=== PATIENT | female | born 1985 | race African-American/Black ===

== ENCOUNTER 2017-09-11 15:01 | Emergency (ER) | payer MEDICAID ==
[~2017-09-11] VITALS: Ht 157.5 cm; Wt 63.5 kg
[2017-09-11] VITALS (8 sets, daily range): BP systolic 110–128; BP diastolic 61–75
[~2017-09-11 15:01] MED LIST: DiphenhydrAMINE 50mg/ml Inj IM ONE; Haloperidol 5mg/ml Inj IM ONE; LORazepam Inj 2mg/ml 1ml IM ONE
--- NOTE | 2017-09-11 15:14 | Emergency Room Report ---
History of Present Illness General Source: Patient - Police Officers and EMS Present Illness HPI 31-year-old female brought in by police and EMS Because she was agitated and threatening people verbally inside the [facility] building and was topless in that building She is not answering questions but rather speaking nonsensically With pressured speech and refusing to get out of the chair, requiring us to coax her repeatedly Police reported that they brought her in for us to take care of since she is agitated and was naked and seemed like a psychiatric case They will not be booking her so requested we address her psychiatric needs as she is disorganized and unable to function appropriately in this agitated state Allergies: Coded Allergies: UNABLE TO ASSESS (Unverified , 09/11/17) Patient History Limited by: medical condition Past Medical History: see triage record Reviewed Nursing Documentation: PMH: Agreed; PSxH: Agreed Review of Systems All Other Systems: limited - uncooperative Physical Exam Sp02 EP Interpretation: reviewed, normal General Appearance: no apparent distress, alert, non-toxic Head: normocephalic Eyes: bilateral eye normal inspection, bilateral eye PERRL, bilateral eye EOMI ENT: normal ENT inspection, hearing grossly normal, normal pharynx, no angioedema, normal voice, moist mucus membranes Neck: normal inspection, full range of motion, supple, supple/symm/no masses Respiratory: chest non-tender, lungs clear, normal breath sounds, chest symmetrical, palpation of chest normal Cardiovascular #1: normal peripheral pulses, regular rate, rhythm Cardiovascular #2: 2+ radial (R), 2+ radial (L) Gastrointestinal: normal inspection, non tender, soft, no mass, no guarding, no rebound Rectal: deferred Genitourinary: normal inspection, no CVA tenderness Musculoskeletal: back normal, gait/station normal, normal range of motion, non- tender, no calf tenderness Neurologic: alert, responsive, 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 Laboratory tests have been reviewed and addressed accordingly. The patient is deemed to present a danger to themselves and/or others. This is based on the exam, history ( provided by patient, EMS/[employer] and/or family) and observed or reported behavior. Attempts for non-invasive measures have been considered and/or attempted, however, have been futile. It is in the best interest of the nursing staff, the patient, and others involved in this patient's care that behavioral restraints be applied. Patient evaluation reveals the following: she is acutely agitated and speaking nonsensical requiring chemical and physical restraint As I think she is acutely manic and exhibiting agitated delirium Diagnostic Impression: Primary Impression: Agitation requiring sedation protocol Additional Impression: Licha Rhythm Strip Diag. Results Rhythm Strip Time: 15:12 EP Interpretation: yes Rate: 102 Rhythm: NSR, no PVC's, no ectopy SHAUN LAMAR M.D September 11, 2017 15:14
[2017-09-11 17:12] LABS: BASOPHILS % (AUTO) 1.5 % (0.0-2.0); EOSINOPHILS % (AUTO) 0.3 % (0.0-3.0); HEMATOCRIT 41.5 % (37.0-47.0); LYMPHOCYTES % (AUTO) 22.8 % (20.0-45.0); MEAN CORPUSCULAR VOLUME 85 FL (80-99); NEUTROPHILS % (AUTO) 64.4 % (45.0-75.0); PLATELET COUNT 262 K/UL (150-450); RED BLOOD COUNT 4.85 M/UL (4.20-5.40); RED CELL DISTRIBUTION WIDTH 11.6 % (11.6-14.8); WHITE BLOOD COUNT 6.6 K/UL (4.8-10.8)
[2017-09-11 17:23] LABS: ANION GAP 9 mmol/L (5-15); BLOOD UREA NITROGEN 13 mg/dL (7-18); CALCIUM 9.4 MG/DL (8.5-10.1); CARBON DIOXIDE 25 MMOL/L (21-32); CHLORIDE 108 MMOL/L (98-107); CREATININE 0.9 MG/DL (0.55-1.30); POTASSIUM 3.7 MMOL/L (3.5-5.1); SODIUM 142 MMOL/L (136-145)
[2017-09-11 17:27] LABS: ALANINE AMINOTRANSFERASE 29 U/L (12-78); ALBUMIN 4.2 G/DL (3.4-5.0); ALKALINE PHOSPHATASE 66 U/L (46-116); ASPARTATE AMINO TRANSFERASE 36 U/L (15-37); BILIRUBIN,TOTAL 0.8 MG/DL (0.2-1.0)
[2017-09-12] VITALS: BP 104/57
[2017-09-12 01:33] LABS: BILIRUBIN, URINE NEGATIVE (NEGATIVE); GLUCOSE, URINE (UA) NEGATIVE (NEGATIVE); KETONES,URINE 4+ (NEGATIVE); LEUKOCYTE ESTERASE ,URINE NEGATIVE (NEGATIVE); NITRITE,URINE NEGATIVE (NEGATIVE); PH,URINE 5 (4.5-8.0); PROTEIN,URINE 2+ (NEGATIVE); UROBILINOGEN,URINE NORMAL MG/DL (0.0-1.0)
[2017-09-12 01:40] LABS: APPEARANCE,URINE CLOUDY; COLOR,URINE YELLOW
[2017-09-12 04:00] VITALS: BP 122/69
[2017-09-12 07:57] VITALS: BP 116/57
[2017-09-12] MEDS ORDERED: Ziprasidone 20mg cap ORAL ONE (10:45)
[2017-09-12 12:13] VITALS: BP 123/62
[2017-09-12 16:45] VITALS: BP 123/62
== END 2017-09-12 16:45 | disposition short-term general hospital (02) ==
LOC: EDBD 15:01 → EMR 15:32
DX: R45.1 Restlessness and agitation (principal); F30.9 Manic episode, unspecified
CPT/HCPCS: 36415; 80053; 80307; 80329; 81003; 84703; 85025; 96372; 99285; J1200; J1630